=== PATIENT | male | born 2000 | race Caucasian/White ===

== ENCOUNTER 2020-11-06 10:41 | Emergency (ER) | payer MEDICAID ==
[~2020-11-06] VITALS: Ht 180.3 cm; Wt 77.3 kg
[2020-11-06 12:03] VITALS: BP 105/57
[2020-11-06] MEDS ORDERED: DOXYCYCLINE HYCLATE 100 MG TABLET PO ONE (12:15)
== END 2020-11-06 12:39 | disposition home or self-care (01) ==
LOC: EMS 10:53
DX: J18.9 Pneumonia, unspecified organism (principal)
CPT/HCPCS: 71045; 99283

== ENCOUNTER 2020-11-16 20:46 | Emergency (ER) | payer MEDICAID ==
[~2020-11-16] VITALS: Ht 188 cm; Wt 73.6 kg
[2020-11-16 21:32] LABS: COVID AG,FIA SOURCE NASOPHARYNGEAL
[2020-11-17] MEDS ORDERED: GuaiFENesin/D-METHORPHAN [SUGAR-FREE] 200-20MG/10 ML SYRUP UDCUP PO ONE (00:15)
[2020-11-17] MEDS ORDERED: IBUPROFEN 600 MG TABLET PO ONE (00:15)
[2020-11-17 00:30] VITALS: BP 118/86
== END 2020-11-17 00:52 | disposition home or self-care (01) ==
LOC: EMS 21:11
DX: J40 Bronchitis, not specified as acute or chronic (principal); J06.9 Acute upper respiratory infection, unspecified; Z20.822 Contact with and (suspected) exposure to COVID-19
CPT/HCPCS: 71046; 87426; 99284; U0003